=== PATIENT | male | born 1950 | race Asian ===

== ENCOUNTER 2021-04-07 12:29 | Outpatient (CLI) | payer OTHER | END 2021-04-07 12:30 | disposition critical access hospital (66) | LOC: EMS 12:29 | DX: R22.32 Localized swelling, mass and lump, left upper limb (principal) | CPT/HCPCS: A0425; A0429 ==

== ENCOUNTER 2021-04-07 12:47 | Emergency (ER) | payer OTHER ==
[2021-04-07 12:55] VITALS: BP 153/78
[2021-04-07] MEDS ORDERED: cephALEXin 250 MG CAPSULE PO STA (13:13)
[2021-04-07] MEDS ORDERED: SULFAMETH/TRIMETH DS 800/160 MG TABLET PO STA (13:13)
--- NOTE | 2021-04-07 13:18 | ED Physician Documentation ---
PD HPI WOUND RECHECK - Stated complaint Stated Complaint: ARM INFECTION - Chief complaint Chief Complaint: Wound - Histroy obtained from History obtained from: Patient - Additional information Additional information: Scratched a lesion off of L forearm a few days ago, now with increased redness and drainage. No fever Review of Systems Constitutional: denies: Fever, Chills Cardiac: reports: Reviewed and negative Respiratory: reports: Reviewed and negative PD PAST MEDICAL HISTORY - Present Medications Home Medications: Ambulatory Orders Medication Instructions Recorded Confirmed Sulfamethox/Trimeth 800/160 1 each PO BID #14 tablet 04/07/21 [Bactrim Ds 800/160] cephALEXin [Keflex] 500 mg PO Q6H #28 cap 04/07/21 - Allergies Allergies/Adverse Reactions: Allergies Allergy/AdvReac Type Severity Reaction Status Date / Time No Known Drug Allergies Allergy Verified 04/07/21 12:56 PD ED PE NORMAL - Vitals Vital signs reviewed: Yes - General General: Alert and oriented X 3, No acute distress - HEENT HEENT: PERRL, EOMI - Extremities Extremities: Other (On the left mid anterior forearm there is a small necrotic ulcer measuring about dime size with clear drainage. It was cultured during examination. There are about 3 to 4 cm of cellulitis extending out in each direction from there. No pain with passive range of motion of the forearm.) - Neuro Neuro: Alert and oriented X 3, Normal speech Results - Vitals Vitals: Vital Signs - 24 hr 04/07/21 12:48 Temperature 36.8 C Heart Rate 75 Respiratory 18 Rate Blood Pressure 153/78 H O2 Saturation 99 Oxygen O2 Source Room air PD MEDICAL DECISION MAKING - ED course ED course: This gentleman has a soft tissue infection which was cultured and he placed on Keflex and Bactrim. No evidence of necrotizing infection or systemic illness. Departure - Departure Disposition: 01 Home, Self Care Clinical Impression: Cellulitis Qualifiers: Site of cellulitis: extremity Site of cellulitis of extremity: upper extremity Laterality: left Qualified Code(s): L03.114 - Cellulitis of left upper limb Condition: Good Record reviewed to determine appropriate education?: Yes Instructions: Cellulitis Dc Prescriptions: Sulfamethox/Trimeth 800/160 [Bactrim Ds 800/160] 1 each PO BID #14 tablet cephALEXin [Keflex] 500 mg PO Q6H #28 cap Comments: We are performing a wound culture, the results should be done in 48-72 hours. If antibiotic change is necessary we will call you. Return if worse in the meantime, especially if you develop increased pain, fevers, cannot keep down the medication. Otherwise follow-up with your physician in approximately 2-3 days.
== END 2021-04-07 13:31 | disposition home or self-care (01) ==
LOC: EDUNIT# → ED 12:47
DX: L03.114 Cellulitis of left upper limb (principal)
CPT/HCPCS: 87070; 87181; 87205; 99283; A9270

== ENCOUNTER 2023-04-18 07:46 | Outpatient (CLI) | payer OTHER ==
--- NOTE | 2023-04-18 14:20 | Ultrasound Report ---
PROCEDURE: Aorta Screening INDICATIONS: SCREENING FOR AAA TECHNIQUE: Real time scanning was performed of the aorta and iliac arteries, with image documentatio n. COMPARISON: None. FINDINGS: Aorta: Proximal aortic diameter measures 2.5 x 2.8 cm. Mid-aorta measures 1.9 x 2.1 cm. Distal aor tic diameter is 2 x 2 cm. Iliac arteries: Right common iliac artery measures 1.3 x 1.3 cm. Left common iliac artery measures 1.4 x 1.1 cm. Calcified plaques are seen scattered throughout abdominal aorta and proximal bilateral iliac arteries . IMPRESSION: No abdominal aortic aneurysm. Calcified plaques throughout abdominal aorta. Reviewed by: Cole Tate MD on 04/18/2023 2:18 PM PDT Approved by: Cole Tate MD on 04/18/2023 2:18 PM PDT Station ID: [id number]
== END 2023-04-18 07:47 | disposition home or self-care (01) ==
LOC: DI 07:46
PROVIDERS: ATTEND Registered Nurse
DX: Z13.6 Encounter for screening for cardiovascular disorders (principal); I70.0 Atherosclerosis of aorta; Z87.891 Personal history of nicotine dependence